=== PATIENT | male | born 1945 | race Caucasian/White ===

== ENCOUNTER 2018-02-09 11:36 | Emergency (ER) | payer OTHER ==
[~2018-02-09] VITALS: Ht 180.3 cm; Wt 76.8 kg
[2018-02-09 13:00] LABS: BASOPHILS # (AUTO) 0.08 x10^3/uL (0-0.1); BASOPHILS % (AUTO) 1 % (0-1); EOSINOPHILS # (AUTO) 0.02 x10^3/uL (0-0.4); EOSINOPHILS % (AUTO) 0 % (1-7); LYMPHOCYTES # (AUTO) 1.57 x10^3/uL (1-3.4); LYMPHOCYTES % (AUTO) 21 % (22-44); MD NO; MEAN CORPUSCULAR HEMOGLOBIN 34.9 pg (27.5-34.5); MEAN CORPUSCULAR HGB CONC 33.9 g/dL (33.2-36.2); MEAN CORPUSCULAR VOLUME 102.8 fL (81-97); MEAN PLATELET VOLUME 7.1 fL (7.4-10.4); MONOCYTES # (AUTO) 0.59 x10^3/uL (0.2-0.8); MONOCYTES % (AUTO) 8 % (2-9); NEUTROPHILS # (AUTO) 5.08 x10^3/uL (1.8-6.8); NEUTROPHILS % (AUTO) 69 % (42-75); PLATELET COUNT 251 x10^3/uL (130-400); RED BLOOD COUNT 4.84 x10^6/uL (4.38-5.82); RED CELL DISTRIBUTION WIDTH 13.1 % (9.4-14.8)
[2018-02-09] MEDS ORDERED: PLEASE ENTER ALLERGIES MC SCH (13:00)
[2018-02-09] MEDS ORDERED: LORazepam 1MG TABLET PO ONE (13:00)
[2018-02-09] MEDS ORDERED: SODIUM CHLORIDE FLUSH 10ML SYR IVF ONE (13:00)
[2018-02-09 13:06] LABS: ALANINE AMINOTRANSFERASE 23 U/L (12-78); ALBUMIN 3.8 g/dL (3.4-5.0); ANION GAP 8 mmol/L (5-15); CALCIUM 8.9 mg/dL (8.5-10.1); CHLORIDE 100 mmol/L (98-107)
[2018-02-09 13:10] LABS: ALKALINE PHOSPHATASE 89 U/L (45-117); BILIRUBIN,TOTAL 0.8 mg/dL (0.2-1.0); CREATININE 1.11 mg/dL (0.7-1.3); TOTAL PROTEIN 8.6 g/dL (6.4-8.2); TROPONIN I < 0.015 ng/mL (0.000-0.045)
[2018-02-09] MEDS ORDERED: LORazepam 2 MG/ML, 1ML ONE (13:10)
[2018-02-09] MEDS ORDERED: LORazepam 1MG TABLET ONE (13:21)
[2018-02-09 14:20] LABS: CULTURE INDICATED? YES; MICROSCOPIC INDICATED
[2018-02-09 14:31] VITALS: BP 144/100
== END 2018-02-09 14:34 | disposition home or self-care (01) ==
LOC: ED 14:28
DX: I10 Essential (primary) hypertension (principal); F17.200 Nicotine dependence, unspecified, uncomplicated; R82.99 Other abnormal findings in urine
CPT/HCPCS: 36415; 71045; 80053; 81001; 83880; 84484; 85025; 87086; 93005; 99285

== ENCOUNTER 2018-04-07 09:28 | Inpatient (IN) | payer OTHER ==
[~2018-04-07] VITALS: Ht 180.3 cm; Wt 69.1 kg
[2018-04-07] MEDS ORDERED: MORPHINE SULFATE 4 MG/ML, 1ML ONE (10:00)
[2018-04-07] MEDS ORDERED: MORPHINE SULFATE 4 MG/ML, 1ML IVPush PRN (10:00)
[2018-04-07] MEDS ORDERED: SODIUM CHLORIDE FLUSH 10ML SYR IVF ONE (10:00)
[2018-04-07] MEDS ORDERED: ONDANSETRON ODT 4 MG ONE (10:00)
[2018-04-07] MEDS ORDERED: ONDANSETRON ODT 4 MG PO ONE (10:00)
[2018-04-07 10:02] LABS: BASOPHILS # (AUTO) 0.05 x10^3/uL (0-0.1); BASOPHILS % (AUTO) 0 % (0-1); EOSINOPHILS # (AUTO) 0.02 x10^3/uL (0-0.4); EOSINOPHILS % (AUTO) 0 % (1-7); LYMPHOCYTES # (AUTO) 1.24 x10^3/uL (1-3.4); LYMPHOCYTES % (AUTO) 11 % (22-44); MD NO; MEAN CORPUSCULAR HEMOGLOBIN 34.7 pg (27.5-34.5); MEAN CORPUSCULAR HGB CONC 34.3 g/dL (33.2-36.2); MEAN CORPUSCULAR VOLUME 101.2 fL (81-97); MEAN PLATELET VOLUME 7.3 fL (7.4-10.4); MONOCYTES % (AUTO) 6 % (2-9); NEUTROPHILS # (AUTO) 9.55 x10^3/uL (1.8-6.8); NEUTROPHILS % (AUTO) 83 % (42-75); PLATELET COUNT 225 x10^3/uL (130-400); RED BLOOD COUNT 4.75 x10^6/uL (4.38-5.82); RED CELL DISTRIBUTION WIDTH 12.9 % (9.4-14.8)
[2018-04-07 10:14] LABS: ALANINE AMINOTRANSFERASE 48 U/L (12-78); ALBUMIN 3.8 g/dL (3.4-5.0); ANION GAP 13 mmol/L (5-15); CALCIUM 9.4 mg/dL (8.5-10.1); CHLORIDE 94 mmol/L (98-107)
[2018-04-07 10:16] LABS: ALKALINE PHOSPHATASE 81 U/L (45-117); BILIRUBIN,TOTAL 1.3 mg/dL (0.2-1.0); CREATININE 3.57 mg/dL (0.7-1.3); TOTAL PROTEIN 8.6 g/dL (6.4-8.2)
[2018-04-07] MEDS ORDERED: SODIUM CHLORIDE 0.9% 1,000ML IVBOLUS ONE (11:00)
[2018-04-07] MEDS ORDERED: SODIUM CHLORIDE 0.9% 1,000 ML IV ONE (11:30)
[2018-04-07] MEDS ORDERED: rosuvastatin (11:33)
[2018-04-07] MEDS ORDERED: lisinopril (11:33)
[2018-04-07] MEDS ORDERED: hydrochlorothiazide (11:33)
[2018-04-07] MEDS ORDERED: SODIUM CHLORIDE 0.9% 1,000 ML IV SCH (12:13)
[2018-04-07 12:23] VITALS: BP 105/68
[2018-04-07] MEDS ORDERED: OXYcodone IR 5MG TABLET PO PRN (12:30)
[2018-04-07] MEDS ORDERED: ACETAMINOPHEN 325 MG TABLET PO PRN (12:30)
[2018-04-07] MEDS ORDERED: morphine SULFATE 10 MG/ML, 1ML IVPush PRN (12:30)
[2018-04-07] MEDS ORDERED: ONDANSETRON 2MG/ML, 2ML IVPush PRN (12:30)
[2018-04-07] MEDS ORDERED: DOCUSATE 100 MG CAPSULE PO PRN (12:30)
[2018-04-07] MEDS: THIAMINE 100MG TABLET PO SCH (13:00)
[2018-04-07 13:32] LABS: CULTURE INDICATED? YES; MICROSCOPIC AUTO
[2018-04-07 13:55] LABS: OSMOLALITY,URINE 433 mOsm/kg (500-850)
[2018-04-07 13:59] LABS: CREATINE KINASE, TOTAL 181 U/L (39-308)
[2018-04-07] MEDS ORDERED: LACTATED RINGERS 1,000 ML IV SCH ×2 (14:00→23:00)
[2018-04-07 14:04] LABS: AMPHETAMINE SCREEN, URINE Negative (Negative); BARBITURATE SCREEN, URINE Negative (Negative); BENZODIAZEPINE SCREEN, URINE Negative (Negative); CANNABINOID SCREEN, URINE Negative (Negative); CHLORIDE,URINE RANDOM 21 mmol/L; COCAINE SCREEN, URINE Negative (Negative); METHADONE SCREEN, URINE Negative (Negative); OPIATE SCREEN, URINE Positive (Negative); POTASSIUM,URINE RANDOM 36 mmol/L; SODIUM,URINE RANDOM 32 mmol/L
[2018-04-07 20:32] VITALS: BP 115/78
[2018-04-08 02:30] VITALS: BP 124/66
[2018-04-08 05:08] LABS: BASOPHILS # (AUTO) 0.09 x10^3/uL (0-0.1); BASOPHILS % (AUTO) 1 % (0-1); EOSINOPHILS # (AUTO) 0.01 x10^3/uL (0-0.4); EOSINOPHILS % (AUTO) 0 % (1-7); LYMPHOCYTES % (AUTO) 6 % (22-44); MD NO; MEAN CORPUSCULAR HEMOGLOBIN 35.3 pg (27.5-34.5); MEAN CORPUSCULAR HGB CONC 34.7 g/dL (33.2-36.2); MEAN CORPUSCULAR VOLUME 101.9 fL (81-97); MEAN PLATELET VOLUME 7.3 fL (7.4-10.4); MONOCYTES # (AUTO) 0.79 x10^3/uL (0.2-0.8); MONOCYTES % (AUTO) 7 % (2-9); NEUTROPHILS # (AUTO) 9.48 x10^3/uL (1.8-6.8); NEUTROPHILS % (AUTO) 86 % (42-75); PLATELET COUNT 200 x10^3/uL (130-400); RED BLOOD COUNT 4.16 x10^6/uL (4.38-5.82); RED CELL DISTRIBUTION WIDTH 12.6 % (9.4-14.8)
[2018-04-08 05:12] VITALS: BP 125/86
[2018-04-08 05:26] LABS: ALANINE AMINOTRANSFERASE 37 U/L (12-78); ALBUMIN 3.2 g/dL (3.4-5.0); ANION GAP 10 mmol/L (5-15); CALCIUM 8.7 mg/dL (8.5-10.1); CHLORIDE 101 mmol/L (98-107); CREATININE 1.86 mg/dL (0.7-1.3)
[2018-04-08 05:28] LABS: ALKALINE PHOSPHATASE 64 U/L (45-117); BILIRUBIN,TOTAL 1.2 mg/dL (0.2-1.0); TOTAL PROTEIN 7.4 g/dL (6.4-8.2)
[2018-04-08 08:30] VITALS: BP 120/84
[2018-04-08] MEDS: THIAMINE 100MG TABLET PO SCH (08:54)
[2018-04-08] MEDS ORDERED: LACTATED RINGERS 1,000 ML IV SCH ×4 (09:00→23:00)
[2018-04-08] MEDS ORDERED: METHOCARBAMOL 500 MG TABLET PO PRN (10:00)
[2018-04-08] MEDS ORDERED: LORazepam 2 MG/ML, 1ML IV PRN ×5 (10:00)
[2018-04-08] MEDS ORDERED: LORazepam 1MG TABLET PO PRN ×4 (10:00)
[2018-04-08] MEDS: LACTATED RINGERS 1,000 ML IV SCH ×2 (10:00→21:14)
[2018-04-08] MEDS ORDERED: LORazepam 0.5MG TABLET PO PRN (10:00)
[2018-04-08] MEDS: FOLIC ACID 1 MG TABLET PO SCH (10:10)
[2018-04-08 10:22] LABS: FREE T4 (FREE THYROXINE) 1.25 ng/dL (0.76-1.46); THYROID STIMULATING HORMONE 0.988 mIU/L (0.358-3.740)
[2018-04-08 10:26] LABS: FOLATE LEVEL 9.4 ng/mL (3.1-17.5)
[2018-04-08] MEDS ORDERED: OXYcodone IR 5MG TABLET PO PRN (12:30)
[2018-04-08 14:12] VITALS: BP 141/98
[2018-04-08] MEDS ORDERED: CYANOCOBALAMIN 1,000 MCG/ML, 1ML IM ONE (15:00)
[2018-04-08 20:13] VITALS: BP 132/94
[2018-04-09 01:33] VITALS: BP 147/87
[2018-04-09 05:25] LABS: BASOPHILS # (AUTO) 0.13 x10^3/uL (0-0.1); BASOPHILS % (AUTO) 1 % (0-1); EOSINOPHILS # (AUTO) 0.03 x10^3/uL (0-0.4); EOSINOPHILS % (AUTO) 0 % (1-7); LYMPHOCYTES # (AUTO) 1.18 x10^3/uL (1-3.4); LYMPHOCYTES % (AUTO) 12 % (22-44); MD NO; MEAN CORPUSCULAR HGB CONC 34.3 g/dL (33.2-36.2); MEAN PLATELET VOLUME 7.5 fL (7.4-10.4); MONOCYTES # (AUTO) 0.91 x10^3/uL (0.2-0.8); MONOCYTES % (AUTO) 10 % (2-9); NEUTROPHILS # (AUTO) 7.28 x10^3/uL (1.8-6.8); NEUTROPHILS % (AUTO) 76 % (42-75); PLATELET COUNT 228 x10^3/uL (130-400); RED BLOOD COUNT 4.05 x10^6/uL (4.38-5.82); RED CELL DISTRIBUTION WIDTH 12.5 % (9.4-14.8)
[2018-04-09 05:37] LABS: ALBUMIN 3.1 g/dL (3.4-5.0); ANION GAP 7 mmol/L (5-15); CALCIUM 8.8 mg/dL (8.5-10.1); CHLORIDE 101 mmol/L (98-107)
[2018-04-09 05:38] LABS: CREATININE 1.24 mg/dL (0.7-1.3)
[2018-04-09 08:08] VITALS: BP 138/96
[2018-04-09] MEDS ORDERED: LACTATED RINGERS 1,000 ML IV SCH (09:00)
[2018-04-09] MEDS: FOLIC ACID 1 MG TABLET PO SCH (09:25)
[2018-04-09] MEDS: THIAMINE 100MG TABLET PO SCH (09:25)
[2018-04-09 12:43] VITALS: BP 138/95
[2018-04-09] MEDS ORDERED: THIA100T6 PO (16:35)
[2018-04-09] MEDS ORDERED: FOLI-17 PO (16:35)
[2018-04-09] MEDS ORDERED: ROSU10TA PO (16:35)
== END 2018-04-09 19:09 | DRG 542 ==
LOC: ED 10:10 → 4EST 11:04 → ED 11:55
PROVIDERS: ADMIT Internal Medicine; ATTEND Internal Medicine
DX: M48.56XA Collapsed vertebra, not elsewhere classified, lumbar region, initial encounter for fracture (principal); N17.0 Acute kidney failure with tubular necrosis; E87.1 Hypo-osmolality and hyponatremia; F10.239 Alcohol dependence with withdrawal, unspecified; W18.30XA Fall on same level, unspecified, initial encounter; E78.5 Hyperlipidemia, unspecified; E87.6 Hypokalemia; F17.210 Nicotine dependence, cigarettes, uncomplicated; F41.1 Generalized anxiety disorder; I71.4 Abdominal aortic aneurysm, without rupture; E78.00 Pure hypercholesterolemia, unspecified; H26.9 Unspecified cataract; I10 Essential (primary) hypertension; D75.89 Other specified diseases of blood and blood-forming organs; E86.1 Hypovolemia; Y90.9 Presence of alcohol in blood, level not specified; Y93.89 Activity, other specified; Y92.89 Other specified places as the place of occurrence of the external cause; Y99.8 Other external cause status; Z79.899 Other long term (current) drug therapy; Z79.1 Long term (current) use of non-steroidal anti-inflammatories (NSAID)
CPT/HCPCS: 36415; 72110; 74176; 80048; 80053; 80307; 81001; 82040; 82436; 82550; 82607; 82728; 82746; 83540; 83550; 83690; 83735; 83935; 84100; 84133; 84155; 84156; 84165; 84166; 84300; 84439; 84443; 85025; 87086; 93005; 96361; 96374; Q0162; J3420; J7030; J7120

== ENCOUNTER 2019-05-20 12:01 | Emergency (ER) | payer MEDICARE, OTHER ==
[~2019-05-20] VITALS: Ht 180.3 cm; Wt 70.0 kg
[~2019-05-20 12:01] MED LIST: FOLI-17 PO; ROSU10TA2 PO; THIA100T67 PO; hydrochlorothiazide; lisinopril; rosuvastatin
[2019-05-20] MEDS ORDERED: METOPROLOL (12:17)
[2019-05-20] MEDS ORDERED: FLEXERIL (12:17)
[2019-05-20] MEDS ORDERED: CELECOXIB (12:17)
[2019-05-20] MEDS ORDERED: ATORVASTATIN (12:17)
--- NOTE | 2019-05-20 12:32 | NUR ---
FRIEND CAROL WYMAN AT [phone]
--- NOTE | 2019-05-20 12:39 | NUR ---
THIS IS A 73 YEAR OLD MALE WHO WAS BIB BY AMBULANCE FROM FOR GROUND LEVEL FALL AND RIGHT SHOULDER DEFORMITY. [facility]
[2019-05-20 13:34] VITALS: BP 138/91
--- NOTE | 2019-05-20 14:10 | NUR ---
FRIEND IS COMING TO [facility] PT FOR DC. ALL DC INSTRUCTIONS GIVEN, SLING APPLIED.
--- NOTE | 2019-05-20 15:20 | NUR ---
1Patient/Caregiver given discharge instructions and they have confirmed that they understand the instructions. Patient ambulatory with steady gait.
== END 2019-05-20 15:22 | disposition home or self-care (01) ==
LOC: ED 13:44
DX: S42.291A Other displaced fracture of upper end of right humerus, initial encounter for closed fracture (principal); W01.0XXA Fall on same level from slipping, tripping and stumbling without subsequent striking against object, initial encounter; Y93.01 Activity, walking, marching and hiking; Y92.098 Other place in other non-institutional residence as the place of occurrence of the external cause; Y99.8 Other external cause status
CPT/HCPCS: 29105; 71045; 99283